=== PATIENT | male | born 2000 | race Caucasian/White ===

== ENCOUNTER 2023-03-08 10:41 | Emergency (ER) | payer BC, SELFPAY ==
[2023-03-08 10:50] VITALS: BP 148/88; PULSE 85; RESP 16; TEMP 37.1; O2SAT 97; BMI 20.7
--- NOTE | 2023-03-08 10:58 | CRLHL7_ITS ---
For Patients: As a result of the Century Cures Act, medical imaging exams and procedure reports are released immediately into your electronic medical record. You may view this report before your referring provider. If you have questions, please contact your health care provider. INDICATION: Trauma, pain, swelling TECHNIQUE: Three views left ankle COMPARISON: None FINDINGS: Bones: Alignment is normal. No fractures or bone lesions. Joint spaces: Unremarkable. Soft tissues: Lateral ankle edema. IMPRESSION: Lateral ankle edema. No fractures. Dictated by Zachary Ayers MD @ 03/08/2023 11:28:07 AM (Electronically Signed)
--- OUTSIDE RECORDS SUMMARY | 2023-03-08 11:06 | XMS_ITS | Continuity of Care Document ---
[facility] Care Team Providers Care Center Line Cutter Operator Name Role Phone [facility] Unavailable Unavailable Medications Medication Details Route Status Patient Instructions Ordering Provider Order Date Source Amoxicillin 500 MG Amoxicillin 500 MG Active 11/02/[address] [facility] Results Order Name Results Value Reference Range Date Interpretation Comments Source COVID-19 Molecular Nucleic Acid Amplification Test (NAAT) COVID-19 NEGATIVE 022 [facility] Rapid Strep Strep NEGATIVE 021 [facility] Consultation Notes Results Value Date Source Encounter Summary Patient Name: FREDY RODRIGUEZ : 2000 Gender: Male External Visit ID: [id number] Visit Date: 2021 DISCHARGE DATE: 00:00:00 Visit Locked Date Time: [id number] Physician: Tameka Mast Resource: Tameka Mast LOCKED NOTES REASON FOR APPOINTMENT 1. R/o strep 2. PCP requesting strep test HISTORY OF PRESENT ILLNESS Sore Throat: Duration a few days . Cough , denies. Fever , low grade. Chills mild. Dysphagia mild , moderate. Recent exposure to strep None known. Tolerates fluids well. Stridor none. Drooling none. Other symptoms none. Modifying Factors pt has tried , nothing for relief. CURRENT MEDICATIONS None PAST MEDICAL HISTORY Medical History Verified ALLERGIES N.K.D.A. FAMILY HISTORY No Family Hx: diagnosed with Diabetes, Heart Disease, Cancer, Hypertension, Stroke, Mental Illness SOCIAL HISTORY 2020 - Tobacco Use: Tobacco Use/Smoking You are anonsmoker REVIEW OF SYSTEMS Constitutional: Lethargy denies . ENT: ear pain none . Gastrointestinal: abdominal pain denies . Musculoskeletal: neck swelling denies . Neurologic: dizziness denies . Skin: rash none . VITAL SIGNS Temp 99.7 F, HR 81 /min, BP 129/78 mm Hg, Oxygen sat % 98 %. EXAMINATION General PE: GENERAL:well developed, well nourished, no acute distress. HEAD:normocephalic, atraumatic. NECKNo resistance to flexion. EYES:no conjunctival injection. EARS/NOSE:no epistaxis noted. 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 HEART:regular rate and rhythm. LUNGS:clear to auscultation, No respiratory distress, No rales, No ronchi, No wheezing, No stridor. ABDOMINAL:soft, non-tender, No guarding, rebound or rigidity, No hepato-splenomegaly. EXTREMITIES:Perfused. NEUROLOGIC:sensation intact. SKIN:warm, dry, no rash on visible skin. PSYCHIATRIC: affect/mood normal, alert and oriented. LYMPHATIC, tender nodes , anterior cervical- right more than left . ASSESSMENTS Acute pharyngitis, unspecified - J02.9 (Primary) Other specified bacterial agents as the cause of diseases classified elsewhere - B96.89 TREATMENT Acute pharyngitis, unspecified LAB: THROAT CULTURE LAB: Rapid Strep Notes: Increase fluids, rest. Warm salt water gargles. May use over the counter cepacol sore throat lozenges May use tylenol and/or ibuprofen as needed for pain/fever. Follow up with your primary care provider in 5-7 days if symptoms persist. Go to ER if you develop trouble breathing, swallowing or one sided throat pain, fever greater than 102F. Clinical Notes: Supervising physician - Dr. Ledbetter negative rapid strep - fever, swollen tender cervical lymph nodes and exudates b/l on tonsil- started on po amoxicillin and sent throat culture. pt well appearing and non toxic. Other specified bacterial agents as the cause of diseases classified elsewhere Start Amoxicillin Tablet, 500 MG, 1 tablet, Orally, every 12 hrs, 10 days, 20, Refills 0 Others Notes: Please follow up with your Primary Care Provider. To find a Primary Care Provider or Specialist, please call our [facility] Referral Line: [phone]. LABS LAB: Rapid Strep Negative Strep NEGATIVE () PondMarijenna 2021 06:07:23 PM > PROCEDURE CODES 54644 CLIA-Waived Strep Test, Modifiers: QW Disclaimer : This is a Visit Summary extracted from the [employer] chart. It is not a copy of the [employer] progress note. 11/03/2021 [facility] Vital Signs Vital Sign Value Date Comments Source Temperature (c) 99.7 [degF] 11/03/2021 [facility] Heart Rate (bpm) 81 11/03/2021 [facility] O2 Saturation 98 11/03/2021 [facility] Systolic (mm Hg) 129 11/03/2021 [facility] Diastolic (mm Hg) 78 11/03/2021 [facility] Encounters Location Location Details Encounter Type Encounter Number Reason For Visit Attending Provider ADM Date DC Date Status Source [facility] Jalen Patel [id number] Tameka Mast 11/02 [facility] [id number] Norm Javier 05/07 [facility] Social History Social History Date Source Tobacco Use:Social History ObservationDescriptionDate Details (start date - stop date) Never Smoker Sex Assigned At :Social History ObservationDescription Sex Assigned At Unknown Tobacco Use/SmokingQuestionAnswerNotes You are a never smoker 05/07/2022 [facility]
--- OUTSIDE RECORDS SUMMARY | 2023-03-08 11:06 | XMS_ITS ---
Author Name ConcepcionNorm oro Address [address] [place] [address] Organization [facility] Address [address] [place] [address] Care Team Providers Care Emergency Communications Officer Name Role Phone Norm Javier Unavailable [phone] PROBLEMS Unknown Problems ALLERGIES No Known Allergies ENCOUNTERS Encounter Location Date Diagnosis [facility] [address] [place] [address] May, Encounter for laboratory testing for COVID-19 virus Z20.822 [facility] [address] [place] [address] Oct, Acute pharyngitis, unspecified J02.9 and Other specified bacterial agents as the cause of diseases classified elsewhere B96.89 IMMUNIZATIONS No Known Immunizations SOCIAL HISTORY Qualifiers Date Never Smoker REASON FOR REFERRAL FUNCTIONAL STATUS PLAN OF CARE VITAL SIGNS Temperature 99.7 degrees Fahrenheit Heart Rate 81 /min 2021 Oximetry 98 % 2021 Blood pressure systolic 129 mm Hg Blood pressure diastolic 78 mm Hg 2021-10 MEDICATIONS Medication Instructions Dosage Frequency Start Date End Date Duration Status Amoxicillin 500 MG Orally every 12 hrs 1 tablet 12h Oct, 10 days Active PROCEDURES Procedure Date Ordered Result Body Site Infectious agent detection b y nucleic acid (DNA or RNA); severe acute respiratory syndrome coronavirus 2 (SARS-CoV-2) (Coronavirus disease [COVID-19]), amplified probe technique May 07, 2022 CLIA-Waived Strep Test 2021 RESULTS Name Result Date Reference Range COVID-19 Molecular Nucleic A brandy Amplification Test (NAAT) 2022-05-07 COVID-19 NEGATIVE THROAT CULTURE 2021 CULTURE, THROAT Rapid Strep 2021 Strep NEGATIVE REASON FOR VISIT naat, exposed 4 days ago, sx: runny nose, r/o strep, PCP requesting strep test Insurance Providers Health Insurance Type Health Plan Insurance Address Health Plan Insurance Phone Health Plan Insurance Name Health Plan Coverage Dates Member ID Patient Relationship to Subscriber Patient Address Patient Phone Patient Name Patient Date of Subscriber ID Subscriber Name Subscriber Date of Group No Solitario WHITAKERO [address] [address] [facility] [id number] Solitario RODRIGUEZ [id number]
--- OUTSIDE RECORDS SUMMARY | 2023-03-08 11:06 | XMS_ITS ---
Author Name Unknown Organization [facility] Address [address] [place] [address] Care Team Providers Care Kiln Hand Name Role Phone Tameka Mast Unavailable [phone] ALLERGIES No Known Allergies ENCOUNTERS from 2000 to 2021-11-03 SOCIAL HISTORY REASON FOR REFERRAL No Information VITAL SIGNS MEDICATIONS RESULTS REASON FOR VISIT MENTAL STATUS ASSESSMENTS PLAN OF TREATMENT Insurance Providers
--- OUTSIDE RECORDS SUMMARY | 2023-03-08 11:06 | XMS_ITS ---
Author Name Unknown Organization [facility], [facility] Address [address] [place] [address] Care Team Providers Care Purchasing Assistant Name Role Phone Norm Javier Unavailable ALLERGIES No Known Allergies ENCOUNTERS from 2000 to 2022-05-08 Encounter Location Date Provider Diagnosis [facility] [address] [place] [address] May, Norm Javier Encounter for laboratory testing for COVID-19 virus Z20.822 SOCIAL HISTORY Tobacco Use: Social History Observation Description Date Details (start date - stop date) Never Smoker Sex Assigned At : Social History Observation Description Sex Assigned At Unknown Tobacco Use/Smoking Question Answer Notes You are a never smoker REASON FOR REFERRAL No Information MEDICATIONS Medication SIG (Take, Route, Fr equency, Duration) Notes Start Date End Date Status Amoxicillin 500 MG 1 tablet Orally ever y 12 hrs for 10 days Oct, Active RESULTS Component Value Reference Range COVID-19 Molecular Nucleic A brandy Amplification Test (NAAT) Reviewed date:05/07/2022 14:41:12 Interpretation:Negative Performing Lab: COVID-19 NEGATIVE REASON FOR VISIT naat, exposed 4 days ago, sx: runny nose MENTAL STATUS No Information ASSESSMENTS Encounter Date Diagnosis Assessment Notes Treatment Notes Treatment Clinical Notes May, Encounter for laboratory testing for COVID-19 virus (ICD-10 - Z20.822) May, Other EXPLANATION OF ALL POSSIBLE COVID TESTS : Nasal Swab (Molecular Covid)/RAPID COVID TESTS: this test detects the virus and is a sign of an active infection. This test is used to diagnose COVID-19. New research shows that you do not need to have any signs of being sick to be infected. You can give the virus to others without knowing. Results that are sent to the lab and can take 3-5 days to return Rapid Testing Results are performed and resulted during your visit in office and no further lab testing is performed Positive Results: the virus was found in the nasal passage and you are infected with COVID-19. You should : 1. Stay home except to get medical care 2. Separate yourself from other people 3. Monitor your symptoms and If you have any of these emergency warning signs for COVID-19 get medical attention immediately: 1. Trouble breathing 2. Persistent pain or pressure in the chest 3. New confusion or inability to arouse 4. Bluish lips or face Negative Results: the virus was not found. A negative result means you probably were not infected at the time your sample was collected. However, that does not mean you will not get sick. It is possible that you were very early in your infection when your sample was collected and that you could test positive later. Or you could be exposed later and then develop illness. In other words, a negative test result does not mean you wont get sick later. This means you could still spread the virus. Please continue to wear a mask, hand wash, and continue social distancing. The current outpatient treatment for COVID-19 is supportive care. Please contact your provider if you have new or worsening symptoms. _ __ __ __ __ __ __ __ __ __ __ __ __ __ __ __ __ __ __ __ __ __ __ __ __ __ __ __ __ __ __ __ __ __ __ __ __ __ __ __ __ __ __ ANTIBODY TESTS Blood test (Serum Antibody IgG): this test is used to determine the likelihood of a previous exposure or infection. This test is NOT used to diagnose COVID-19 and DOES NOT say a patient is immune to COVID-19. Results are sent to the lab and can take 3-5 days to return. Note that after an infection, it can take 2- 3 weeks for your body to produce detectable levels of IgG. Research shows that some patients will be positive even when they never had any sign of illness. Positive Results: If you have a positive test result, it is likely that you have or previously had COVID-19 and that you have developed an antibody response to the virus. Your healthcare provider will work with you to determine how best to care for you based on the test results along with other factors of your medical history, including any previous symptoms, possible exposure to COVID-19, and the location of places you have recently traveled. There is also the chance that this test can give a positive result that is wrong (a false positive result).Positive results DO NOT mean you are immune to COVID-19, please continue to wear a mask, hand wash, and continue social distancing. At this time, it is unknown how long antibodies persist following infection and if the presence of antibodies confers protective immunity. Negative Results: A negative test result means that the antibodies to the virus that causes COVID-19 were not found in your sample. However, it is possible for this test to give a negative result that is incorrect (false negative) in some people with COVID-19 infection. A negative result may occur if you are tested early in your illness and your body has not had time to produce antibodies to infection. If this is the case, your healthcare provider will consider the test result together with all other aspects of your medical history (such as symptoms, possible exposures, and geographical location of places you have recently traveled) in deciding how to care for you. It is important that you work with your healthcare provider to help you understand the next steps you should take. If you receive negative results and had symptoms within the last 3 weeks of your test, repeat testing in 1-2 weeks may reveal positive results. Negative results DO NOT mean you are negative for COVID-19, you may still be able to give someone COVID-19, please continue to wear a mask, hand wash, and continue social distancing. PLAN OF TREATMENT No Information Insurance Providers Payer Name Payer Address Payer Phone Insured Name Patient Relationship to Insured Coverage Start Date Coverage End Date Subscriber Number Group Number [employer] PPO [address] [address] [facility] [address] [place] [id number]
--- NOTE | 2023-03-08 23:40 | ED.LOWEXIN ---
HPI - Extremity Injury (Lower) General Chief Complaint: Extremity Pain/Injury, Lower Stated Complaint: L ankle injury Time Seen by Provider: 03/08/23 10:49 History of Present Illness HPI Narrative: Patient twisted left ankle playing volleyball last night. Pain, swelling. Took hydrocodone, ibuprofen last night, elevated , iced. Took 1000mg ibuprofen since 0300 today. Denies previous injury. 22-year-old young man presenting to the emergency department complaint of left ankle pain and swelling and has continued overnight after he describes an inversion injury that occurred while playing volleyball yesterday. Has been primarily jumping on the other leg. Was able to bear just a little bit of weight but increasingly less due to pain. Has done some icing and took ibuprofen. Also tried some hydrocodone from a dental procedure late last year. Has never injured the ankle before that he can recall. Related Data Home Medications Medication Instructions Recorded Confirmed No Known Home Medications 03/08/23 03/08/23 Allergies Allergy/AdvReac Type Severity Reaction Status Date / Time Penicillins Allergy Severe Anaphylaxis Verified 03/08/23 10:48 PFSH PFS Social History Smoking Status: Never smoker Do you use any of these nicotine containing products: None Second hand tobacco smoke exposure: No How often do you have a drink containing alcohol: monthly or less AUDIT-C Alcohol total score: 1 Non-prescribed substance use: denies use Exam Narrative: Exam Narrative: Tall. Lanky. Calm. Marked lateral malleolar soft swelling. Pain at the posterior to lateral malleolus but more so ismael-inferior to the lateral malleolus in the soft tissues consistent with sprain. No navicular base of 5th metatarsal tenderness. No medial malleolar tenderness. No laxity to varus or valgus or AP drawer Const: Vital Signs, click to edit/add: Vital Signs - 24 hr 03/08/23 10:50 Temperature 98.7 F Pulse Rate [Pulse Oximeter] 85 Respiratory Rate 16 Blood Pressure [Ri ght Upper Arm] 148/88 H Pulse Oximetry 97 Oxygen Delivery Me thod Room Air Documenting provider has reviewed patient's vital signs: yes Skin: Nails: pitting Course Vital Signs Vital signs: Initial Vital Signs Temperature 98.7 F 03/08/23 10:50 Temperature Source Temporal Artery Scan 03/08/23 10:50 Pulse Rate 85 03/08/23 10:50 Respiratory Rate 16 03/08/23 10:50 Blood Pressure 148/88 H 03/08/23 10:50 Blood Pressure Mean 108 H 03/08/23 10:50 Blood Pressure Position Sitting 03/08/23 10:50 Pulse Oximetry 97 03/08/23 10:50 Oxygen Delivery Method Room Air 03/08/23 10:50 Vital Signs Temperature 98.7 F 03/08/23 10:50 Pulse Rate 85 03/08/23 10:50 Respiratory Rate 16 03/08/23 10:50 Blood Pressure 148/88 H 03/08/23 10:50 Pulse Oximetry 97 03/08/23 10:50 Oxygen Delivery Method Room Air 03/08/23 10:50 Temperature 98.7 F 03/08/23 10:50 Pulse Rate 85 03/08/23 10:50 Respiratory Rate 16 03/08/23 10:50 Blood Pressure 148/88 H 03/08/23 10:50 Pulse Oximetry 97 03/08/23 10:50 Oxygen Delivery Method Room Air 03/08/23 10:50 MDM - Extremity Injury (Lower) MDM Narrative Medical decision making narrative: Since participating in more competitive athletics though I think bilateral ankle rules would pass, I think would be a good idea to image. Left ankle x-ray reviewed by me shows soft tissue swelling consistent with physical exam but no acute bony abnormality. Denise is maintained Able to bear a little bit of weight when I placed an Aircast. Ultimately a little too much discomfort to malleolar pressure and he removed it noting that he intends to use it later Given crutches and Marshall wraps. See patient discharge plan Discharge Plan Discharge Clinical Impression: Ankle sprain Patient Disposition: Home, Self-Care Additional Instructions: Rest over the next 2 - 3 days. Ice 2 - 3 times daily over the next few days, maybe the next week. Compress with Marshall wraps. Elevate. Can use the Aircast to start early supported ambulation at that point. See handout on ankle rehabilitation [email or web address] ---I would look at the hinged ankle braces for volleyball in particular; basketball too. Prescriptions: No Action No Known Home Medications Follow Up/Referrals: Provider,Not a Local [Primary Care Provider] - Stand Alone Forms: MyHealth Info Instructions
== END 2023-03-08 12:19 | disposition home or self-care (01) ==
PROVIDERS: Emergency Provider Family Medicine
DX: S93.402A Sprain of unspecified ligament of left ankle, initial encounter (principal); X50.1XXA Overexertion from prolonged static or awkward postures, initial encounter; Y93.68 Activity, volleyball (beach) (court)
CPT/HCPCS: 73610; 99283; 99284